=== PATIENT | male | born 1985 ===

== ENCOUNTER 2018-04-16 13:12 | Inpatient (IN) ==
[2018-04-16] MEDS ORDERED: DEXAMETHASONE **PF** INJ 10 MG/ML VIAL PO ONE (13:35)
[2018-04-16] MEDS ORDERED: ALBUT/IPRATROP 3MG/0.5MG NEB 3 ML VIAL NEB STA ×2 (13:35→14:14)
--- NOTE | 2018-04-16 13:46 | XRay Report ---
XR chest 1V portable CLINICAL HISTORY: Shortness of breath. COMPARISON STUDY: No previous studies for comparison. FINDINGS: Lung volumes are normal. The lungs are clear. There is no pneumothorax or pleural effusion. Cardiac size is normal. Mediastinal contours are unremarkable. Pulmonary vascularity is normal. IMPRESSION: No acute cardiopulmonary findings. Electronically signed by: Kody Davis M.D. 04/16/2018 1:45 PM
--- NOTE | 2018-04-16 14:35 | Emergency Department Note ---
Entered by Mohini Andrea acting as a scribe for Roge Keane M.D. History of Present Illness General Chief complaint: Asthma Stated complaint: SOB Source: patient Mode of arrival: ambulatory Limitations: no limitations History of Present Illness Onset (ago): day(s) 3 Location: chest Radiation: non-radiation Pain Consistency: + constant Maximum Pain Intensity: 7 Relieved By: + medication Exacerbated By: + none Associated symptoms: + other (-leg swelling) Treatments prior to arrival: other (breathing treatment) The patient is a 33 year old male who presents to the Emergency Room with complaints of shortness of breath for the past few days. He admits to a history of asthma. He was brought to the ED via EMS from [facility], where he resides. He has tried using breathing treatments with minimal relief. He states it has been about 16 months since his last asthma flare up. He denies any chronic medical problems. He denies any leg swelling. Home Medications Home Medications Medication Instructions Recorded Confirmed Type ipratropium-albuterol 3 ml INHALATION Q8H 04/16/18 04/16/18 History levalbuterol tartrate [Xopenex HFA] 2 inh INHALATION Q6H 04/16/18 04/16/18 History montelukast 10 mg PO PM 04/16/18 04/16/18 History Allergies Allergy/AdvReac Type Severity Reaction Status Date / Time No Known Allergies Allergy Verified 04/16/18 15:15 Past Med/Surg History Medical History Asthma Social History Current Living Situation: Other [facility] Other Information That Helps Us Care for You: No Feels Safe at Home: Yes Safety Concerns: Feels Safe At This Time Smoking Status: Former smoker Do You Dip or Chew Tobacco: No Second Hand Exposure: No Tobacco Cessation Education Requested by Patient: No Hx Alcohol Use: No Hx Substance Use: No Beliefs That Will Affect Care: None Preferred Language: Czech Communication Ability: Effective Cotton Buyer Required: No Review of Systems See HPI for pertinent positives & negatives. and A total of 10 systems reviewed and were otherwise negative Physical Exam Vital Signs Vital Signs - 24 hr 04/16/18 13:17 04/16/18 14:04 04/16/18 14:08 Temperature 37.2 C Temperature Source Oral Sepsis Recent Fever Within 48 Hours No Sepsis New/Unexplained Change in Mental Status No Sepsis Action Taken by Nursing No Action Required Pulse Rate 96 H Pulse Rate [Apical] Respiratory Rate 20 Respiratory Effort / Characteristics Non-Labored Spontaneous Short of Breath Respiratory Depth Normal Respiratory Pattern Regular Blood Pressure 126/84 Blood Pressure [Right Arm] Blood Pressure Mean 98 Blood Pressure Mean [Right Arm] Blood Pressure Position Sitting Pulse Oximetry 91 86 L Oxygen Delivery Method Room Air Nasal Cannula Room Air Oxygen Flow Rate 2 2 04/16/18 14:12 04/16/18 15:18 Temperature Temperature Source Sepsis Recent Fever Within 48 Hours Sepsis New/Unexplained Change in Mental Status Sepsis Action Taken by Nursing Pulse Rate Pulse Rate [Apical] 94 H Respiratory Rate 18 Respiratory Effort / Characteristics Short of Breath Non-Labored Spontaneous Respiratory Depth Normal Normal Respiratory Pattern Regular Blood Pressure Blood Pressure [Right Arm] 174/98 H Blood Pressure Mean Blood Pressure Mean [Right Arm] 123 Blood Pressure Position Pulse Oximetry 94 Oxygen Delivery Method Nasal Cannula Nasal Cannula Oxygen Flow Rate 2 2 GENERAL: Awake, alert, well-appearing, in no distress, shackled HENT: Normocephalic, atraumatic. Oropharynx unremarkable. EYES: Normal conjunctiva. Sclera non-icteric. NECK: Supple. No nuchal rigidity. RESPIRATORY: Right greater than left lung sounds, diffuse wheezing. CARDIAC: Normal rate. Normal rhythm. Extremities warm and well perfused. GI: Soft, non-distended. No tenderness to palpation. No rebound or guarding. RECTAL: Deferred. MUSCULOSKELETAL: Atraumatic. Chest examination reveals no tenderness. LOWER EXTREMITIES: Calves are equal size bilaterally and non-tender. No edema NEURO: Normal sensorium. No sensory or motor deficits noted. No facial droop. SKIN: Warm and dry. No rash or jaundice noted. Course 1332: Past medical records reviewed. The patient was evaluated in room B11B, and a complete history and physical examination were performed. 1510: I discussed the patients case with Saundra Borges PA-C, [facility]. The patient will be further evaluated. Consultations Consultation #1: I discussed the patients case with [facility] The patient will be further evaluated. Time: 15:10 Administered Medications Discontinued Medications Albuterol (Duoneb) 3 ml NEB NOW STA Stop: 04/16/18 13:36 Last Admin: 04/16/18 13:59 Dose: 3 ml Albuterol (Duoneb) 3 ml NEB NOW STA Stop: 04/16/18 14:15 Last Admin: 04/16/18 14:48 Dose: 3 ml Dexamethasone Sodium Phosphate (Decadron Pf) 10 mg PO NOW ONE Stop: 04/16/18 13:36 Last Admin: 04/16/18 13:59 Dose: 10 mg Medical Decision Making Differential Diagnosis Differential diagnoses includes but is not limited to pneumonia, bronchitis, COPD/Asthma exacerbation, pneumothorax, pulmonary embolism, congestive heart failure, acute coronary syndrome Medical Records Attestation: I reviewed the patient's medical records. Home Medications Current Medication List: was personally reviewed by me Laboratory Data Attestation: I reviewed the patient's lab results. Result diagrams: 04/16/18 14:30 04/16/18 14:30 Lab Results 04/16/18 04/16/18 04/16/18 Range/Units 14:30 14:30 14:45 WBC 8.77 (4.8-10.8) K/uL RBC 4.96 (4.7-6.1) M/uL Hgb 15.7 (14.0-18.0) g/dL POC Hgb 15.3 (14.0-18.0) g/dl Hct 44.1 (42-52) % POC Hct 45 (42-52) % MCV 88.9 (80-100) fL MCH 31.7 (25-34) pg MCHC 35.6 (32-36) g/dL RDW Std Deviation 40.8 (36.4-46.3) fL RDW Coeff of Amber 12.7 (11.5-14.5) % Plt Count 188 (130-400) K/uL MPV 11.1 H (7.4-10.4) fL Immature Gran % (Auto) 0.2 % Neut % (Auto) 77.7 % Lymph % (Auto) 13.5 % [place] % (Auto) 8.4 % Eos % (Auto) 0.0 % Baso % (Auto) 0.2 % Immature Gran # (Auto) 0.02 (0.00-0.02) K/uL Neut # (Auto) 6.81 H (1.4-6.5) K/uL Lymph # (Auto) 1.18 L (1.2-3.4) K/uL [place] # (Auto) 0.74 H (0.11-0.59) K/uL Eos # (Auto) 0.00 (0-0.5) K/uL Baso # (Auto) 0.02 (0-0.2) K/uL POC D-Dimer (0-450) ng/mlFEU POC Sodium 142 (135-144) mEq/L Sodium 139 (136-145) mmol/L POC Potassium 3.8 (3.3-5.0) mEq/L Potassium 3.8 (3.5-5.1) mmol/L POC Chloride 101 (101-112) mEq/L Chloride 107 (98-107) mmol/L Carbon Dioxide 28 (21-32) mmol/L POC Total CO2 27 (24-31) mEq/l Anion Gap 4.0 (3-11) POC Anion Gap 18.0 (16-25) mmol/L POC BUN 15 (7-18) mg/dl BUN 16 (7-18) mg/dl Creatinine 1.06 (0.6-1.4) mg/dl POC Creatinine 0.9 (0.6-1.3) mg/dl Est Cr Clr Drug Dosing 101.4 ml/min Est GFR ( Amer) 105.6 Est GFR (Non-Af Amer) 91.1 BUN/Creatinine Ratio 15.5 (10-20) Glucose 133 H (70-99) mg/dl POC Glucose (other) 135 H (70-99) mg/dl Calcium 8.3 L (8.5-10.1) mg/dl POC Ioniz Calcium Arnoldo 1.15 (1.12-1.32) mmol/l Troponin I < 0.015 (0-0.045) ng/ml 04/16/18 Range/Units 14:45 WBC (4.8-10.8) K/uL RBC (4.7-6.1) M/uL Hgb (14.0-18.0) g/dL POC Hgb (14.0-18.0) g/dl Hct (42-52) % POC Hct (42-52) % MCV (80-100) fL MCH (25-34) pg MCHC (32-36) g/dL RDW Std Deviation (36.4-46.3) fL RDW Coeff of Amber (11.5-14.5) % Plt Count (130-400) K/uL MPV (7.4-10.4) fL Immature Gran % (Auto) % Neut % (Auto) % Lymph % (Auto) % [place] % (Auto) % Eos % (Auto) % Baso % (Auto) % Immature Gran # (Auto) (0.00-0.02) K/uL Neut # (Auto) (1.4-6.5) K/uL Lymph # (Auto) (1.2-3.4) K/uL [place] # (Auto) (0.11-0.59) K/uL Eos # (Auto) (0-0.5) K/uL Baso # (Auto) (0-0.2) K/uL POC D-Dimer 319 (0-450) ng/mlFEU POC Sodium (135-144) mEq/L Sodium (136-145) mmol/L POC Potassium (3.3-5.0) mEq/L Potassium (3.5-5.1) mmol/L POC Chloride (101-112) mEq/L Chloride (98-107) mmol/L Carbon Dioxide (21-32) mmol/L POC Total CO2 (24-31) mEq/l Anion Gap (3-11) POC Anion Gap (16-25) mmol/L POC BUN (7-18) mg/dl BUN (7-18) mg/dl Creatinine (0.6-1.4) mg/dl POC Creatinine (0.6-1.3) mg/dl Est Cr Clr Drug Dosing ml/min Est GFR ( Amer) Est GFR (Non-Af Amer) BUN/Creatinine Ratio (10-20) Glucose (70-99) mg/dl POC Glucose (other) (70-99) mg/dl Calcium (8.5-10.1) mg/dl POC Ioniz Calcium Arnoldo (1.12-1.32) mmol/l Troponin I (0-0.045) ng/ml Imaging Data Radiologist's Impression: Radiology results as stated below per my review and the radiologist's interpretation: XR chest 1V portable CLINICAL HISTORY: Shortness of breath. COMPARISON STUDY: No previous studies for comparison. FINDINGS: Lung volumes are normal. The lungs are clear. There is no pneumothorax or pleural effusion. Cardiac size is normal. Mediastinal contours are unremarkable. Pulmonary vascularity is normal. IMPRESSION: No acute cardiopulmonary findings. Electronically signed by: Kody Davis M.D. 04/16/2018 1:45 PM ECG Data Attestation: I personally reviewed and interpreted this ECG as follows: Indication: SOB/dyspnea Rate (beats per minute): 91 Rhythm: normal sinus Findings: + other (normal axis); no PVC and no ST elevation Blood Pressure Blood Pressure Findings: Elevated blood pressure MDM Narrative Patient is a 33-year-old gentleman from [facility] history of asthma and pneumonia presenting today complaining of shortness of breath starting today. Little bit of posterior chest discomfort. Given DuoNeb with some improvement there but had some diminished breath sounds in the left side and reportedly was a bit hypoxic there was thus sent here for evaluation. No leg swelling. Well- appearing here without fever. Chest x-ray and EKG were completed. Doubt this is ACS or dissection. Does have wheezing and some increased diminishment on the left side. Chest x-ray shows no pneumothorax. Is in the mid 80s on room air. No evidence of pneumonia on chest x-ray. Believe this is all asthma exacerbation however given the hypoxia d-dimer was sent and basic labs completed. Troponin is negative. Given dexamethasone orally for steroid. Given some duo nebs here. Given some magnesium for his asthma as well. D- dimer was negative this lowers my suspicion in addition to his history for pulmonary embolism. Given the new onset hypoxia and his respiratory status do believe admission for further oxygen treatment of asthma flare is indicated. Does complain of a little bit of a headache and given some Tylenol likely this is a side effect of the albuterol. Discussed with the [facility] hospitalist who is the next of admission. Impression & Plan Asthma with acute exacerbation, Hypoxia Discharge Plan Visit Data Chief Complaint: Asthma Stated Complaint: SOB ED Provider: Roge Keane Discharge Problem: Asthma with acute exacerbation, Hypoxia Forms Stand Alone Forms: My [facility] [employer] Prescriptions Prescriptions: No Action ipratropium-albuterol 0.5 mg-3 mg(2.5 mg base)/3 mL Solution For Nebulization 3 ml INHALATION Q8H RF: 0 montelukast 10 mg Tablet 10 mg PO PM RF: 0 levalbuterol tartrate [Xopenex HFA] 45 mcg/actuation Hfa Aerosol Inhaler 2 inh INHALATION Q6H RF: 0 The scribe's documentation has been prepared under my direction and personally reviewed by me in its entirety. I confirm that the note above accurately reflects all work, treatment, procedures, and medical decision making performed by me.
[2018-04-16 14:50] LABS: Basophils # (auto) 0.02 K/uL (0-0.2); Basophils % (auto) 0.2 %; Hematocrit (blood only) 44.1 % (42-52); Hemoglobin 15.7 g/dL (14.0-18.0); Immature Granulocytes # (auto) 0.02 K/uL (0.00-0.02); Immature Granulocytes % (auto) 0.2 %; Lymphocytes # (auto) 1.18 K/uL (1.2-3.4); Lymphocytes % (auto) 13.5 %; Mean Corpuscular Hgb Conc 35.6 g/dL (32-36); Mean Corpuscular Volume 88.9 fL (80-100); Mean Platelet Volume 11.1 fL (7.4-10.4); Monocytes # (auto) 0.74 K/uL (0.11-0.59); Monocytes % (auto) 8.4 %; Neutrophils # (auto) 6.81 K/uL (1.4-6.5); Neutrophils % (auto) 77.7 %; Platelet Count 188 K/uL (130-400); RDW Coefficient of Variation 12.7 % (11.5-14.5); RDW Standard Deviation 40.8 fL (36.4-46.3); Red Blood Count 4.96 M/uL (4.7-6.1); White Blood Count 8.77 K/uL (4.8-10.8)
[2018-04-16 14:59] LABS: iSTAT Hemoglobin 15.3 g/dl (14.0-18.0); iSTAT Ionized Calcium 1.15 mmol/l (1.12-1.32)
[2018-04-16] MEDS ORDERED: ACETAMINOPHEN 500 MG TAB PO STA (15:01)
[2018-04-16 15:06] LABS: BUN Creatinine Ratio 15.5 (10-20); Blood Urea Nitrogen 16 mg/dl (7-18); Calcium 8.3 mg/dl (8.5-10.1); Carbon Dioxide 28 mmol/L (21-32); Chloride 107 mmol/L (98-107); Creatinine Clr Calc Pharmacy 101.4 ml/min; Est GFR (African American) 105.6; Est GFR (Non-African American) 91.1; Glucose 133 mg/dl (70-99); Potassium 3.8 mmol/L (3.5-5.1); Sodium 139 mmol/L (136-145)
[2018-04-16 15:10] LABS: Troponin I < 0.015 ng/ml (0-0.045)
[2018-04-16] MEDS ORDERED: MAGNESIUM SULFATE / D5W 1 GM/100 ML BAG IV ONE (15:21)
[2018-04-16] MEDS ORDERED: ALBUT/IPRATROP 3MG/0.5MG NEB 3 ML VIAL NEB ONE (15:30)
[2018-04-16] MEDS ORDERED: KETOROLAC TROMETHAMINE 15 MG/ML VIAL IV PRN (16:12)
--- NOTE | 2018-04-16 16:13 | History & Physical Report ---
Date of Service April 16, 2018 Assessment & Plan (1) Asthma with acute exacerbation: This is a 33yo M from [facility] with a PMH of asthma who presents with worsening SOB and wheezing x 2 days and was found to have acute hypoxic respiratory failure in setting of asthma exacerbation. -Flu PCR pending, PNA considered but CXR without acute cardiopulmonary findings -Given albuterol breathing treatment and 10mg PO dexamethasone in ED with improvement of symptoms -Solu-medrol 40mg Q8H, Duonebs QIDR, continue home singulair -Medical telemetry (2) Hypoxia: In setting of acute asthma exacerbation -Hypoxic at 86% on room air upon arrival but is now saturating at 92% on 2L NC -Continue supplemental O2 for now, wean as tolerated (3) Pleuritic chest pain: Likely due to coughing with asthma exacerbation, pain reproducible on exam -EKG without ischemic changes, initial troponin negative -D-dimer negative -Toradol, tylenol PRN DVT Ppx: Robbin osborne, early ambulation Code status: FULL PCP: [facility] Dispo: Admitted to med/tele. Discharge planning ordered. Patient seen in collaboration with Dr. Mendes. Please see addendum. History of Present Illness Chief Complaint: SOB, wheezing Primary Care Provider: [facility] This is a 33yo M from [facility] with a PMH of asthma who presents with worsening SOB,wheezing and dry cough x 2 days. Started to experience pleuritic chest pain today as well, made worse with deep inspiration. Takes Xopenex inhaler, singulair and Duonebs PRN at [facility]. Was given albuterol breathing treatment and dexamethasone 10mg PO x 1 in ED with improvement of symptoms. Patient also endorses a slight frontal headache that has improved after tylenol. Has not been tested for flu. Endorses fatigue and muscle aches but denies fever, chills , lightheadedness, palpitations, nausea, vomiting, abdominal pain, dysuria, diarrhea, constipation or lower extremity swelling. Was initially hypoxic at 86% on room air upon arrival but is now saturating at 92% on 2L NC. Does not requite oxygen at baseline. Allergies Allergy/AdvReac Type Severity Reaction Status Date / Time No Known Allergies Allergy Verified 04/16/18 15:15 Home Medications Home Medications Medication Instructions Recorded Confirmed Type ipratropium-albuterol 3 ml INHALATION Q8H PRN 04/16/18 04/16/18 History levalbuterol tartrate [Xopenex HFA] 2 inh INHALATION Q6H PRN 04/16/18 04/16/18 History montelukast 10 mg PO PM 04/16/18 04/16/18 History Past Med/Surg History Medical History Asthma (Chronic) Surgical History History of appendectomy (Resolved) Family History Mother Asthma Diabetes Social History Current Living Situation: Other Current Living Situation Comment: [employer] Other Information That Helps Us Care for You: No Feels Safe at Home: Yes Safety Concerns: Feels Safe At This Time Smoking Status: Former smoker Do You Dip or Chew Tobacco: No Second Hand Exposure: No Tobacco Cessation Education Requested by Patient: No Hx Alcohol Use: No Hx Substance Use: No Beliefs That Will Affect Care: None Preferred Language: Qatari Communication Ability: Effective Escort Blind Required: No Review of Systems All systems reviewed & are unremarkable except as noted in HPI & below Physical Exam 2 Vital Signs (Past 24 Hours): Last Vital Signs Temp 37.2 C 04/16/18 13:17 Pulse 94 H 04/16/18 14:12 Resp 18 04/16/18 14:12 BP 174/98 H 04/16/18 14:12 Pulse Ox 94 04/16/18 14:12 Physical Exam: General Appearance: WD/WN, no apparent distress, resting comfortably, saturating at 92% on 3L NC Head: normocephalic, atraumatic Eyes: normal inspection, PERRL, EOMI ENT: hearing grossly normal, pharynx normal (moist mucous membranes) Neck: supple, no JVD, no adenopathy Respiratory/Chest: Chest wall tenderness to palpation. Diffuse wheezing throughout lung chavira. No rales or rhonci. No respiratory distress or accessory muscle use Cardiovascular: regular rate, rhythm, no murmur, normal peripheral pulses Abdomen/GI: normal bowel sounds, soft, non-tender to palpation Extremities/Musculoskelatal: normal inspection, no calf tenderness, normal capillary refill, no pedal edema Neurologic/Psych: alert, normal mood/affect, oriented x 3 Skin: normal color, warm/dry Results & Data Laboratory Results Short CBC 04/16/18 Range/Units 14:30 WBC 8.77 (4.8-10.8) K/uL Hgb 15.7 (14.0-18.0) g/dL Hct 44.1 (42-52) % Plt Count 188 (130-400) K/uL BMP 04/16/18 14:30 Sodium 139 Potassium 3.8 Chloride 107 Carbon Dioxide 28 BUN 16 Creatinine 1.06 Glucose 133 H Calcium 8.3 L Cardiac Enzymes 04/16/18 Range/Units 14:30 Troponin I < 0.015 (0-0.045) ng/ml Diagnostic Findings CXR: IMPRESSION: No acute cardiopulmonary findings. ECG Additional Comments: Sinus rhythm with short AK. Otherwise normal ECG Code Status & VTE Plan Code Status FULL Supervising Physician Co-Signing Physician Notes Pt was seen and examined. Agreed with Saundra SANDERS exam, assessment and plan. 33yo M from [facility] with a PMH of asthma who presents with worsening SOB associated with wheezing and dry cough. Influenza PCR negative. CXR showed no acute cardiopulmonary findings. Will start on IV solumdrol 40mg IV q8h and neb treatment. Continue monitor closely. MD Vaughn _ (1) Asthma with acute exacerbation Asthma persistence: intermittent Asthma severity: unspecified severity Qualified Code(s): J45.21 - Mild intermittent asthma with (acute) exacerbation
[2018-04-16 17:42] LABS: Influenza A virus by PCR Neg for Influ A (Neg); Influenza B virus by PCR Neg for Influ B (Neg)
[2018-04-16] MEDS ORDERED: ONDANSETRON INJ 2 MG/ML 2 ML VIAL IV PRN (18:19)
[2018-04-16] MEDS ORDERED: ACETAMINOPHEN 325 MG TAB PO PRN (18:19)
[2018-04-16] MEDS ORDERED: POLYETHYLENE (MIRALAX) 17 GM PACK PO PRN (18:19)
[2018-04-16] MEDS: methylPREDNISolone 40 MG in SYRINGE 0 ML IV SCH (19:15)
[2018-04-16] MEDS: ALBUT/IPRATROP 3MG/0.5MG NEB 3 ML VIAL NEB SCH (19:33)
[2018-04-16] MEDS: MONTELUKAST SODIUM 10 MG TABLET PO SCH (20:41)
[2018-04-17] MEDS: methylPREDNISolone 40 MG in SYRINGE 0 ML IV SCH ×3 (03:41→18:25)
[2018-04-17 05:48] LABS: Hematocrit (blood only) 43.2 % (42-52); Hemoglobin 15.4 g/dL (14.0-18.0); Mean Corpuscular Hgb Conc 35.6 g/dL (32-36); Mean Corpuscular Volume 88.3 fL (80-100); Mean Platelet Volume 11.1 fL (7.4-10.4); Platelet Count 198 K/uL (130-400); RDW Coefficient of Variation 12.8 % (11.5-14.5); RDW Standard Deviation 40.9 fL (36.4-46.3); Red Blood Count 4.89 M/uL (4.7-6.1)
[2018-04-17 06:24] LABS: BUN Creatinine Ratio 22.9 (10-20); Calcium 9.2 mg/dl (8.5-10.1); Creatinine Clr Calc Pharmacy 110.8 ml/min; Est GFR (African American) 117.6; Est GFR (Non-African American) 101.4; Potassium 4.6 mmol/L (3.5-5.1)
[2018-04-17] MEDS: ALBUT/IPRATROP 3MG/0.5MG NEB 3 ML VIAL NEB SCH ×4 (07:01→19:34)
--- NOTE | 2018-04-17 15:36 | Hospitalist Progress Note ---
Date of Service April 17, 2018 Assessment & Plan (1) Asthma with acute exacerbation: Patient is a 33 yr male from [facility] with H/O Asthma presents with worsening SOB and wheezing x 2 days and was found to be hypoxic CXR: No acute cardiopulmonary findings. Flu PCR:Negative Continue Nebs, Solumedrol, singulair Supplemental Oxygen as needed (2) Hypoxia: In setting of acute asthma exacerbation Resolved Monitor (3) Pleuritic chest pain: Likely pleuritic 2/2 above Pain reproducible on exam Troponin negative D-dimer negative Resolved Hyperglycemia: R/O DM A1C:pending DVT Px: SCDs Code status: FULL PCP: CHRISTOFER Nichols Dispo: CHRISTOFER maxwellpritesh when medically stable Subjective Patient is seen and examined at bedside Doing better today Reports cough Less SOB Denies chest pain, dizziness, abd pain Saturating well on room air Physical Exam 2 Vital Signs (Past 24 Hours): Last Vital Signs Temp 36.6 C 04/17/18 11:00 Pulse 92 H 04/17/18 15:02 Resp 16 04/17/18 15:02 BP 128/55 L 04/17/18 11:00 Pulse Ox 94 04/17/18 15:02 Physical Exam: Physical Exam: Vitals signs as noted above General Appearance:Moderately built and nourished, no apparent distress Head: normocephalic, Atraumatic Eyes: normal inspection, EOMI Neck: supple, Trachea midline Respiratory/Chest: Decreased breath sounds, CTA Cardiovascular: S1, S2, No murmur Abdomen/GI:Soft, Non tender, Bowel sounds present Extremities/Musculoskelatal:normal inspection, no edema Neurologic/Psych:AAOX3, grossly no focal neurological deficits Skin: normal color, warm Results & Data Laboratory Results Short CBC 04/17/18 Range/Units 05:26 WBC 12.00 H (4.8-10.8) K/uL Hgb 15.4 (14.0-18.0) g/dL Hct 43.2 (42-52) % Plt Count 198 (130-400) K/uL BMP 04/17/18 05:26 Sodium 135 L Potassium 4.6 D Chloride 102 Carbon Dioxide 26 BUN 22 H Creatinine 0.97 Glucose 136 H Calcium 9.2 _ (1) Asthma with acute exacerbation Asthma persistence: intermittent Asthma severity: unspecified severity Qualified Code(s): J45.21 - Mild intermittent asthma with (acute) exacerbation
[2018-04-17] MEDS: MONTELUKAST SODIUM 10 MG TABLET PO SCH (21:38)
[2018-04-18] MEDS: methylPREDNISolone 40 MG in SYRINGE 0 ML IV SCH ×3 (03:20→20:22)
[2018-04-18 06:00] LABS: Hematocrit (blood only) 43.5 % (42-52); Hemoglobin 15.1 g/dL (14.0-18.0); Mean Corpuscular Hgb Conc 34.7 g/dL (32-36); Mean Platelet Volume 10.9 fL (7.4-10.4); Platelet Count 193 K/uL (130-400); RDW Coefficient of Variation 13.1 % (11.5-14.5); RDW Standard Deviation 43.4 fL (36.4-46.3); Red Blood Count 4.78 M/uL (4.7-6.1); White Blood Count 20.27 K/uL (4.8-10.8)
[2018-04-18 06:29] LABS: BUN Creatinine Ratio 24.9 (10-20); Calcium 8.7 mg/dl (8.5-10.1); Creatinine Clr Calc Pharmacy 104.3 ml/min; Est GFR (African American) 109.3; Est GFR (Non-African American) 94.3; Potassium 4.5 mmol/L (3.5-5.1)
[2018-04-18 06:48] LABS: Estimated Average Glucose 123 mg/dl
[2018-04-18] MEDS: ALBUT/IPRATROP 3MG/0.5MG NEB 3 ML VIAL NEB SCH ×4 (07:02→19:33)
--- NOTE | 2018-04-18 17:20 | Hospitalist Progress Note ---
Date of Service April 18, 2018 Assessment & Plan (1) Asthma with acute exacerbation: Patient is a 33 yr male from [facility] with H/O Asthma presents with worsening SOB and wheezing x 2 days and was found to be hypoxic CXR: No acute cardiopulmonary findings. Flu PCR:Negative Continue Nebs, Solu medrol, singulair Added Doxy for possible bronchitis Supplemental Oxygen as needed Check Procalcitonin Nausea, Vomiting: Denies Abd pain/Diarrhea Conservative management (2) Hypoxia: In setting of acute asthma exacerbation Resolved Monitor (3) Pleuritic chest pain: Likely pleuritic 2/2 above Pain reproducible on exam on presentation Troponin negative D-dimer negative Resolved Hyperglycemia: R/O DM A1C:5.9 DVT Px: SCDs Code status: FULL PCP: CHRISTOFER Nichols Dispo: CHRISTOFER nichols when medically stable Subjective Patient is seen and examined at bedside Reports nausea, vomiting, cough with expectoration Dyspnea/Wheezing improved Denies chest pain, dizziness, abd pain, diarrhea Saturating well on room air Physical Exam 2 Vital Signs (Past 24 Hours): Last Vital Signs Temp 36.7 C 04/18/18 15:32 Pulse 108 H 04/18/18 15:53 Resp 18 04/18/18 15:53 BP 134/67 04/18/18 15:32 Pulse Ox 95 04/18/18 15:53 Physical Exam: Physical Exam: Vitals signs as noted above General Appearance:Moderately built and nourished, no apparent distress Head: normocephalic, Atraumatic Eyes: normal inspection, EOMI Neck: supple, Trachea midline Respiratory/Chest: Decreased breath sounds, CTA Cardiovascular: S1, S2, No murmur Abdomen/GI:Soft, Non tender, Bowel sounds present Extremities/Musculoskelatal:normal inspection, no edema Neurologic/Psych:AAOX3, grossly no focal neurological deficits Skin: normal color, warm Results & Data Laboratory Results Short CBC 04/18/18 Range/Units 05:46 WBC 20.27 H (4.8-10.8) K/uL Hgb 15.1 (14.0-18.0) g/dL Hct 43.5 (42-52) % Plt Count 193 (130-400) K/uL BMP 04/18/18 05:46 Sodium 138 Potassium 4.5 Chloride 105 Carbon Dioxide 27 BUN 26 H Creatinine 1.03 Glucose 146 H Calcium 8.7 _ (1) Asthma with acute exacerbation Asthma persistence: intermittent Asthma severity: unspecified severity Qualified Code(s): J45.21 - Mild intermittent asthma with (acute) exacerbation
[2018-04-18] MEDS: DOXYCYCLINE HYCLATE 100 MG CAP PO SCH (20:21)
[2018-04-18] MEDS: MONTELUKAST SODIUM 10 MG TABLET PO SCH (20:22)
[2018-04-19] MEDS: DOXYCYCLINE HYCLATE 100 MG CAP PO SCH (05:40)
[2018-04-19] MEDS: ALBUT/IPRATROP 3MG/0.5MG NEB 3 ML VIAL NEB SCH ×2 (07:02→11:02)
[2018-04-19] MEDS: methylPREDNISolone 40 MG in SYRINGE 0 ML IV SCH (07:38)
[2018-04-19 08:42] LABS: Basophils # (auto) 0.01 K/uL (0-0.2); Basophils % (auto) 0.1 %; Hematocrit (blood only) 43.7 % (42-52); Immature Granulocytes # (auto) 0.06 K/uL (0.00-0.02); Immature Granulocytes % (auto) 0.3 %; Lymphocytes # (auto) 1.32 K/uL (1.2-3.4); Lymphocytes % (auto) 6.7 %; Mean Corpuscular Hgb Conc 34.3 g/dL (32-36); Mean Corpuscular Volume 91.4 fL (80-100); Mean Platelet Volume 10.8 fL (7.4-10.4); Monocytes # (auto) 1.04 K/uL (0.11-0.59); Monocytes % (auto) 5.3 %; Neutrophils # (auto) 17.16 K/uL (1.4-6.5); Neutrophils % (auto) 87.6 %; Platelet Count 199 K/uL (130-400); RDW Standard Deviation 43.5 fL (36.4-46.3); Red Blood Count 4.78 M/uL (4.7-6.1); White Blood Count 19.59 K/uL (4.8-10.8)
[2018-04-19 09:18] LABS: BUN Creatinine Ratio 23.7 (10-20); Calcium 8.7 mg/dl (8.5-10.1); Creatinine Clr Calc Pharmacy 108.6 ml/min; Est GFR (African American) 114.7; Magnesium 1.8 mg/dl (1.8-2.4)
--- NOTE | 2018-04-19 12:23 | Hospitalist Progress Note ---
Date of Service April 19, 2018 Assessment & Plan (1) Asthma with acute exacerbation: Patient is a 33 yr male from [facility] with H/O Asthma presents with worsening SOB and wheezing x 2 days and was found to be hypoxic CXR: No acute cardiopulmonary findings. Flu PCR:Negative Continue Nebs, Solu medrol, singulair Continue Doxycycline for possible bronchitis Supplemental Oxygen as needed Procalcitonin: Normal Nausea, Vomiting: Denies Abd pain/Diarrhea Conservative management Resolved (2) Hypoxia: In setting of acute asthma exacerbation Resolved Monitor (3) Pleuritic chest pain: Likely pleuritic 2/2 above Pain reproducible on exam on presentation Troponin negative D-dimer negative Resolved Hyperglycemia: R/O DM A1C:5.9 DVT Px: SCDs Code status: FULL PCP: CHRISTOFER Nichols Dispo: CHRISTOFER nichols when medically stable Subjective Patient is seen and examined at bedside No nausea, vomiting, abd pain today Denies dyspnea Still has some cough with expectoration Denies chest pain No other complaints Physical Exam 2 Vital Signs (Past 24 Hours): Last Vital Signs Temp 36.8 C 04/19/18 11:51 Pulse 79 04/19/18 11:51 Resp 18 04/19/18 11:51 BP 170/70 H 04/19/18 11:51 Pulse Ox 96 04/19/18 11:51 Physical Exam: Physical Exam: Vitals signs as noted above General Appearance:Moderately built and nourished, no apparent distress Head: normocephalic, Atraumatic Eyes: normal inspection, EOMI Neck: supple, Trachea midline Respiratory/Chest: Decreased breath sounds, Scattered Rhonchi Cardiovascular: S1, S2, No murmur Abdomen/GI:Soft, Non tender, Bowel sounds present Extremities/Musculoskelatal:normal inspection, no edema Neurologic/Psych:AAOX3, grossly no focal neurological deficits Skin: normal color, warm Results & Data Laboratory Results Short CBC 04/19/18 Range/Units 08:24 WBC 19.59 H (4.8-10.8) K/uL Hgb 15.0 (14.0-18.0) g/dL Hct 43.7 (42-52) % Plt Count 199 (130-400) K/uL BMP 04/19/18 08:24 Sodium 140 Potassium 4.0 Chloride 105 Carbon Dioxide 29 BUN 23 H Creatinine 0.99 Glucose 169 H Calcium 8.7 _ (1) Asthma with acute exacerbation Asthma persistence: intermittent Asthma severity: unspecified severity Qualified Code(s): J45.21 - Mild intermittent asthma with (acute) exacerbation
--- NOTE | 2018-04-19 12:45 | Discharge Summary ---
Date of Service April 19, 2018 Admission HPI Per Admitting Provider This is a 33yo M from [facility] with a PMH of asthma who presents with worsening SOB,wheezing and dry cough x 2 days. Started to experience pleuritic chest pain today as well, made worse with deep inspiration. Takes Xopenex inhaler, singulair and Duonebs PRN at [facility]. Was given albuterol breathing treatment and dexamethasone 10mg PO x 1 in ED with improvement of symptoms. Patient also endorses a slight frontal headache that has improved after tylenol. Has not been tested for flu. Endorses fatigue and muscle aches but denies fever, chills , lightheadedness, palpitations, nausea, vomiting, abdominal pain, dysuria, diarrhea, constipation or lower extremity swelling. Was initially hypoxic at 86% on room air upon arrival but is now saturating at 92% on 2L NC. Does not requite oxygen at baseline. Admission Exam Per Admitting Provider General Appearance: WD/WN, no apparent distress, resting comfortably, saturating at 92% on 3L NC Head: normocephalic, atraumatic Eyes: normal inspection, PERRL, EOMI ENT: hearing grossly normal, pharynx normal (moist mucous membranes) Neck: supple, no JVD, no adenopathy Respiratory/Chest: Chest wall tenderness to palpation. Diffuse wheezing throughout lung chavira. No rales or rhonci. No respiratory distress or accessory muscle use Cardiovascular: regular rate, rhythm, no murmur, normal peripheral pulses Abdomen/GI: normal bowel sounds, soft, non-tender to palpation Extremities/Musculoskelatal: normal inspection, no calf tenderness, normal capillary refill, no pedal edema Neurologic/Psych: alert, normal mood/affect, oriented x 3 Skin: normal color, warm/dry Principal Diagnosis Discharge Information Discharge Diagnosis Asthma Exaberbation Possible Bronchitis Hypoxia--Resolved Discharge Goals Decrease discomfort,Improve disease control, Improve function Discharge Activity Limitations Resume your previous activity Discharge Data Allergies Allergy/AdvReac Type Severity Reaction Status Date / Time No Known Allergies Allergy Verified 04/16/18 15:15 Consultations 04/16/18 15:09 ED Decision to Admit Stat 04/16/18 18:19 Consult Case Management - Discharge Planning Routine Procedures Performed CXR: No acute cardiopulmonary findings. Hospital Course (1) Asthma with acute exacerbation: Patient is a 33 yr male from [facility] with H/O Asthma presents with worsening SOB and wheezing x 2 days and was found to be hypoxic CXR: No acute cardiopulmonary findings. Flu PCR:Negative Continue Nebs, Solu medrol, singulair Continue Doxycycline for possible bronchitis Supplemental Oxygen as needed Procalcitonin: Normal Nausea, Vomiting: Denies Abd pain/Diarrhea Conservative management Resolved (2) Hypoxia: In setting of acute asthma exacerbation Resolved Monitor (3) Pleuritic chest pain: Likely pleuritic 2/2 above Pain reproducible on exam on presentation Troponin negative D-dimer negative Resolved Hyperglycemia: R/O DM A1C:5.9 DVT Px: SCDs Code status: FULL PCP: CHRISTOFER Nichols Dispo: CHRISTOFER nichols when medically stable Total Time Total Time Spent Total Time Spent (In Minutes): 38 minutes Total Time Includes: Examination of the Patient, Discharge Planning, Medication Reconciliation, Communication With Other Providers and Other Discharge Plan Discharge Items [facility] Reason For Visit: ASTHMA EXCERBATION HYPOXIA Discharge Diagnosis: Asthma Exaberbation Possible Bronchitis Hypoxia--Resolved Discharge Goals: Decrease discomfort, Improve disease control and Improve function Activity: Resume your previous activity Exercise/Sports: Gradually increase as tolerated Non-emergency contact: Primary Care Provider Call non-emergency contact if: you have any medication questions, your symptoms worsen, your pain is not controlled, your pain is worsening, your pain is unusual for you, your pain is concerning for you and you have a fever Diet: Regular Addtl Provider Instructions: Follow up with your Physician in 1 week Complete the Prednisone and antibiotic course as prescribed Seek immediate medical attention if your symptoms reoccur or worsen Prednisone Course: Start taking prednisone 40mg daily for 3 days, then 30mg for 3 days, then 20mg for 3 days, then 10mg for 3 days and STOP Prescriptions: New doxycycline hyclate 100 mg Capsule 100 mg PO BID@0600,1800 5 Days Qty: 10 RF: 0 fluticasone-salmeterol [Advair Diskus] 100-50 mcg/dose blister with device 1 inha INH BID Qty: 1 RF: 0 prednisone 10 mg tablet 10 mg PO UD 12 Days Qty: 30 RF: 0 Continue ipratropium-albuterol 0.5 mg-3 mg(2.5 mg base)/3 mL Solution For Nebulization 3 ml INHALATION Q8H PRN (Reason: Shortness Of Breath Or Wheezing) RF: 0 montelukast 10 mg Tablet 10 mg PO PM RF: 0 levalbuterol tartrate [Xopenex HFA] 45 mcg/actuation Hfa Aerosol Inhaler 2 inh INHALATION Q6H PRN (Reason: Shortness Of Breath Or Wheezing) RF: 0 Stand-Alone Forms: [facility] Discharge Orders: Discharge Order (Routine); Ordered 04/19/18 Ordered By: Eleazar Singh Admission Data Admit Date/Time: 04/16/18 16:10 Attending Provider: Eleazar Singh Admit Provider: Maribel Mendes Primary Care Provider: Magdalena BEAULIEU Other Providers: Maribel Mendes Service: Telemetry Other Interventions: Discharge Summary Assessment (RN) Last Done: 04/19/18 13:04 Pending Studies at Discharge: No DC Date/Time DO NOT enter until pt leaves facility: 04/19/18 14:24
== END 2018-04-19 14:24 | DRG 203 ==
LOC: ED 13:12 → 2N 16:10